=== PATIENT | female | born 1980 | race African-American/Black ===

== ENCOUNTER 2016-12-20 09:17 | Emergency (ER) | payer MEDICAID, OTHER ==
[~2016-12-20] VITALS: Ht 157.5 cm; Wt 78.0 kg
[2016-12-20 11:16] LABS: BASOPHILS % 0.7 % (0.0-2.0); EOSINOPHILS % 0.8 % (0.0-5.0); HEMATOCRIT. 39.2 % (36.0-48.0); HEMOGLOBIN. 13.5 g/dL (12.0-16.0); LYMPHOCYTES % 26.3 % (20.0-50.0); MEAN CORPUSCULAR HEMOGLOBIN 30.5 pg (28.0-32.0); MEAN CORPUSCULAR VOLUME 88.6 fL (81.0-99.0); MEAN PLATELET VOLUME 8.6 fl (7.4-10.4); MONOCYTES % 4.6 % (2.0-8.0); NEUTROPHILS % 67.6 % (40.0-76.0); PLATELET 256 x1000/uL (130-400); RED BLOOD CELL COUNT 4.43 mill/uL (4.2-5.4)
[2016-12-20 11:33] LABS: B-HCG QUANTITATIVE < 1 mIU/mL (<3); CARBON DIOXIDE 28 mEq/L (21-32); CHLORIDE 106 mEq/L (98-107)
[2016-12-20 11:52] LABS: CLARITY URINE CLOUDY (CLEAR); COLOR URINE DARK YELLOW (YELLOW); GLUCOSE URINE NEGATIVE (NEGATIVE); KETONES URINE NEGATIVE (NEGATIVE); LEUKOCYTE ESTERASE URINE NEGATIVE (NEGATIVE); NITRITE URINE NEGATIVE (NEGATIVE); OCCULT BLOOD URINE NEGATIVE (NEGATIVE); PROTEIN URINE NEGATIVE (NEGATIVE); SPECIFIC GRAVITY URINE 1.035 (1.005-1.030); UROBILINOGEN URINE 0.2 E.U./dL (0.2-1.0)
[2016-12-20 13:10] VITALS: BP 125/70
== END 2016-12-20 13:21 | disposition home or self-care (01) ==
LOC: ER 10:41
DX: N93.8 Other specified abnormal uterine and vaginal bleeding (principal); R10.9 Unspecified abdominal pain; E03.9 Hypothyroidism, unspecified
CPT/HCPCS: 36415; 76830; 76856; 80048; 81001; 84702; 85025; 86850; 86900; 99285

== ENCOUNTER 2017-02-14 21:28 | Emergency (ER) | payer MEDICAID ==
[~2017-02-14] VITALS: Ht 157.5 cm; Wt 80.0 kg
[2017-02-14] MEDS ORDERED: KETOROLAC 30MG/ML VIAL IV STA (23:00)
[2017-02-14] MEDS ORDERED: FAMOTIDINE 20MG/2ML VIAL IV STA (23:00)
[2017-02-14] MEDS ORDERED: ONDANSETRON HCL 4MG/2ML VIAL IV STA (23:00)
[2017-02-14] MEDS ORDERED: SODIUM CHLORIDE 0.9% 1,000 ML IV ONE (23:00)
[2017-02-14 23:19] LABS: BASOPHILS % 0.5 % (0.0-2.0); EOSINOPHILS % 0.2 % (0.0-5.0); HEMATOCRIT. 34.1 % (36.0-48.0); HEMOGLOBIN. 11.6 g/dL (12.0-16.0); LYMPHOCYTES % 11.9 % (20.0-50.0); MEAN CORPUSCULAR HEMOGLOBIN 29.9 pg (28.0-32.0); MEAN CORPUSCULAR VOLUME 87.7 fL (81.0-99.0); MEAN PLATELET VOLUME 8.2 fl (7.4-10.4); MONOCYTES % 8.6 % (2.0-8.0); NEUTROPHILS % 78.8 % (40.0-76.0); PLATELET 259 x1000/uL (130-400); RED BLOOD CELL COUNT 3.89 mill/uL (4.2-5.4)
[2017-02-14 23:26] LABS: CHLORIDE 97 mEq/L (98-107)
[2017-02-14 23:32] LABS: CARBON DIOXIDE 28 mEq/L (21-32)
[2017-02-14 23:37] LABS: HCG SCREEN NEGATIVE
[2017-02-14 23:53] LABS: CLARITY URINE CLEAR (CLEAR); COLOR URINE YELLOW (YELLOW); GLUCOSE URINE NEGATIVE (NEGATIVE); KETONES URINE 3+ (NEGATIVE); LEUKOCYTE ESTERASE URINE 2+ (NEGATIVE); NITRITE URINE NEGATIVE (NEGATIVE); OCCULT BLOOD URINE TRACE (NEGATIVE); PH URINE 5.5 (4.5-8.0); PROTEIN URINE NEGATIVE (NEGATIVE); SPECIFIC GRAVITY URINE 1.014 (1.005-1.030)
[2017-02-15 04:07] VITALS: BP 126/75
== END 2017-02-15 04:09 | disposition home or self-care (01) ==
LOC: ER 21:28
DX: N39.0 Urinary tract infection, site not specified (principal)
CPT/HCPCS: 36415; 74176; 80053; 81001; 83690; 84703; 85025; 96374; 96375; 99285; J1885; J2405; J3490; J7030; Z7610

== ENCOUNTER 2017-03-07 20:41 | Emergency (ER) | payer MEDICAID ==
[~2017-03-07] VITALS: Ht 157.5 cm; Wt 78.5 kg
[2017-03-07] MEDS ORDERED: LEVO25TA2 PO (22:17)
[2017-03-08 03:52] LABS: CLARITY URINE CLEAR (CLEAR); COLOR URINE YELLOW (YELLOW); GLUCOSE URINE NEGATIVE (NEGATIVE); KETONES URINE NEGATIVE (NEGATIVE); LEUKOCYTE ESTERASE URINE NEGATIVE (NEGATIVE); NITRITE URINE NEGATIVE (NEGATIVE); OCCULT BLOOD URINE NEGATIVE (NEGATIVE); PROTEIN URINE NEGATIVE (NEGATIVE); SPECIFIC GRAVITY URINE 1.028 (1.005-1.030); UROBILINOGEN URINE 0.2 E.U./dL (0.2-1.0)
[2017-03-08] MEDS ORDERED: KETOROLAC 30MG/ML VIAL IM ONE (04:15)
[2017-03-08 07:55] VITALS: BP 108/63
== END 2017-03-08 09:16 | disposition home or self-care (01) ==
LOC: ER 20:41
DX: M54.5 Low back pain (principal); R30.0 Dysuria; R10.2 Pelvic and perineal pain; Z87.440 Personal history of urinary (tract) infections
CPT/HCPCS: 76770; 76856; 81003; 81025; 96372; 99285; J1885

== ENCOUNTER 2018-01-17 00:24 | Emergency (ER) | payer MEDICAID ==
[~2018-01-17] VITALS: Ht 157.5 cm; Wt 73.0 kg
[~2018-01-17 00:24] MED LIST: LEVO25TA2 PO
[2018-01-17 00:37] VITALS: BP 136/64
[2018-01-17] MEDS ORDERED: PROMETHAZINE/DEXTROMETHORPHAN 6.25-15MG/5ML BOTTLE 120ML PO ONE (04:15)
== END 2018-01-17 05:26 | disposition home or self-care (01) ==
LOC: ER 00:24
DX: J06.9 Acute upper respiratory infection, unspecified (principal)
CPT/HCPCS: 71045; 81025; 99283

== ENCOUNTER 2019-11-24 20:43 | Emergency (ER) | payer MEDICAID ==
[~2019-11-24] VITALS: Ht 157.5 cm; Wt 77.0 kg
[2019-11-24 23:10] LABS: CLARITY URINE CLOUDY (CLEAR); COLOR URINE YELLOW (YELLOW); KETONES URINE NEGATIVE (NEGATIVE); LEUKOCYTE ESTERASE URINE 1+ (NEGATIVE); NITRITE URINE NEGATIVE (NEGATIVE); OCCULT BLOOD URINE NEGATIVE (NEGATIVE); PROTEIN URINE NEGATIVE (NEGATIVE); SPECIFIC GRAVITY URINE 1.021 (1.005-1.030); UROBILINOGEN URINE 0.2 E.U./dL (0.2-1.0)
[2019-11-25 01:03] VITALS: BP 128/78
== END 2019-11-25 01:04 | disposition home or self-care (01) ==
LOC: ER 20:43
DX: N30.90 Cystitis, unspecified without hematuria (principal); N94.0 Mittelschmerz; R03.0 Elevated blood-pressure reading, without diagnosis of hypertension; K42.9 Umbilical hernia without obstruction or gangrene
CPT/HCPCS: 74176; 81003; 81025; 99284